=== PATIENT | male | born 1950 | race Caucasian/White ===

== ENCOUNTER → 2017-12-09 | Outpatient (CLI) | payer MEDICARE, OTHER ==
[2017-12-09 14:22] LABS: ABSOLUTE BASOPHILS 0.1 thou/uL (0.0-0.2); ABSOLUTE EOSINOPHILS 0.1 thou/uL (0.0-0.7); ABSOLUTE LYMPHOCYTES 1.6 thou/uL (0.8-5.3); ABSOLUTE MONOCYTES 0.5 thou/uL (0.0-1.2); ABSOLUTE NEUTROPHILS 4.7 thou/uL (1.6-8.1); BASOPHILS 0.8 %; EOSINOPHILS 1.6 %; HEMATOCRIT 42.4 % (42.0-52.0); HEMOGLOBIN 14.6 gm/dL (14.0-18.0); LYMPHOCYTES 22.3 %; MCH 31.4 pg (26.0-34.0); MCHC 34.3 g/dL (28.0-37.0); MCV 91.3 fL (80.0-100.0); MONOCYTES 7.1 %; NUCLEATED RBCS 0 /100WBC; PLATELET COUNT* 268 thou/uL (150-400); POLYS 68.2 %; RBC 4.64 mil/uL (4.50-6.00); RDW-CV 12.7 % (10.5-14.5)
[2017-12-09 14:35] LABS: ALBUMIN 3.9 g/dL (3.4-5.0); CALCIUM 8.8 mg/dL (8.5-10.1); CREATININE 0.9 mg/dL (0.6-1.3); POTASSIUM 3.8 mmol/L (3.5-5.1); TOTAL BILIRUBIN 0.7 mg/dL (<0.1-1.0); TOTAL PROTEIN 7.2 g/dL (6.4-8.2)
[2017-12-09 15:51] LABS: ESR (SEDRATE) 1 mm/hr (0-20)
== END ==
LOC: M.LAB 14:01
PROVIDERS: Psychiatry & Neurology Neuromuscular Medicine
DX: G45.4 Transient global amnesia (principal); F41.9 Anxiety disorder, unspecified; R53.83 Other fatigue; Z86.79 Personal history of other diseases of the circulatory system

== ENCOUNTER → 2018-01-31 | Outpatient (CLI) | payer MEDICARE, OTHER | LOC: M.MRI 13:06 | DX: I65.23 Occlusion and stenosis of bilateral carotid arteries (principal); R42 Dizziness and giddiness ==

== ENCOUNTER → 2018-10-09 | Outpatient (CLI) | payer MEDICARE, OTHER ==
[2018-10-09 11:11] LABS: CHOLESTEROL 148 mg/dL (<200); HDL CHOLESTEROL 49 mg/dL (>40); LDL CHOLESTEROL 81 mg/dL (<100); TRIGLYCERIDE 94 mg/dL (<150); VLDL 19 mg/dL (<40)
[2018-10-09 11:17] LABS: SERUM ASSESSMENT Clear
== END ==
LOC: M.LAB 10:37
PROVIDERS: Internal Medicine Cardiovascular Disease
DX: E78.2 Mixed hyperlipidemia (principal)

== ENCOUNTER → 2019-01-01 | Outpatient (CLI) | payer MEDICARE, OTHER ==
[2019-01-01 12:13] LABS: HEMATOCRIT 44.3 % (42.0-52.0); HEMOGLOBIN 15.5 gm/dL (14.0-18.0); MCH 31.4 pg (26.0-34.0); MCHC 34.9 g/dL (28.0-37.0); MCV 90.1 fL (80.0-100.0); MPV 6.9 fl. (7.2-11.1); RBC 4.92 mil/uL (4.50-6.00); RDW-CV 12.7 % (10.5-14.5); WBC 8.5 thou/uL (4.0-11.0)
[2019-01-01 12:26] LABS: ALBUMIN 3.8 g/dL (3.4-5.0); DIRECT BILIRUBIN 0.1 mg/dL (<0.1-0.3); TOTAL BILIRUBIN 0.6 mg/dL (<0.1-1.0); TOTAL PROTEIN 7.4 g/dL (6.4-8.2)
== END ==
LOC: M.LAB 11:46
PROVIDERS: Podiatrist Foot & Ankle Surgery
DX: B35.1 Tinea unguium (principal)

== ENCOUNTER → 2019-02-18 | Outpatient (CLI) | payer MEDICARE, OTHER ==
[2019-02-18 11:58] LABS: HEMATOCRIT 43.2 % (42.0-52.0); MCH 31.1 pg (26.0-34.0); MCHC 34.8 g/dL (28.0-37.0); MCV 89.4 fL (80.0-100.0); MPV 7.1 fl. (7.2-11.1); RBC 4.83 mil/uL (4.50-6.00); RDW-CV 12.7 % (10.5-14.5); WBC 6.4 thou/uL (4.0-11.0)
[2019-02-18 12:15] LABS: ALBUMIN 3.9 g/dL (3.4-5.0); DIRECT BILIRUBIN 0.1 mg/dL (<0.1-0.3); TOTAL BILIRUBIN 0.5 mg/dL (<0.1-1.0); TOTAL PROTEIN 7.1 g/dL (6.4-8.2)
== END ==
LOC: M.LAB 11:35
PROVIDERS: Podiatrist Foot & Ankle Surgery
DX: B35.1 Tinea unguium (principal)

== ENCOUNTER → 2019-03-24 | Outpatient (CLI) | payer MEDICARE, OTHER ==
[2019-03-24 16:37] LABS: DIRECT BILIRUBIN 0.1 mg/dL (<0.1-0.3); TOTAL BILIRUBIN 0.3 mg/dL (<0.1-1.0)
== END ==
LOC: M.LAB 15:53
PROVIDERS: Podiatrist Foot & Ankle Surgery
DX: B35.1 Tinea unguium (principal)

== ENCOUNTER → 2019-04-23 | Outpatient (CLI) | payer MEDICARE, OTHER ==
[2019-04-23 12:30] LABS: ALBUMIN 3.9 g/dL (3.4-5.0); DIRECT BILIRUBIN 0.1 mg/dL (<0.1-0.3); TOTAL BILIRUBIN 0.4 mg/dL (<0.1-1.0); TOTAL PROTEIN 7.1 g/dL (6.4-8.2)
== END ==
LOC: M.LAB 11:39
PROVIDERS: Podiatrist Foot & Ankle Surgery
DX: B35.1 Tinea unguium (principal)

== ENCOUNTER 2019-11-19 10:06 | Observation (INO) | payer MEDICARE, OTHER ==
[~2019-11-19] VITALS: Ht 175.3 cm; Wt 89.4 kg
[2019-11-19] VITALS (11 sets, daily range): BP systolic 116–142; BP diastolic 62–82
[2019-11-19 11:36] LABS: HEMATOCRIT 42.6 % (42.0-52.0); HEMOGLOBIN 15.3 gm/dL (14.0-18.0); MCH 32.9 pg (26.0-34.0); MCHC 35.8 g/dL (28.0-37.0); MCV 91.9 fL (80.0-100.0); MPV 7.2 fl. (7.2-11.1); RBC 4.64 mil/uL (4.50-6.00); RDW-CV 12.9 % (10.5-14.5); WBC 6.3 thou/uL (4.0-11.0)
[2019-11-19 11:46] LABS: APTT 26.8 Seconds (25.0-31.3); PROTIME 10.7 Seconds (9.20-11.50)
[2019-11-19 11:54] LABS: ANION GAP 4 mmol/L (7-16); BUN 20 mg/dL (7-18); CALCIUM 8.9 mg/dL (8.5-10.1); CHLORIDE 104 mmol/L (98-107); CO2 29 mmol/L (21-32); CREATININE 1.1 mg/dL (0.6-1.3); GLUCOSE 121 mg/dL (70-99); POTASSIUM 4.2 mmol/L (3.5-5.1); SODIUM 137 mmol/L (136-145)
[2019-11-19 11:58] LABS: ALKALINE PHOSPHATASE 43 U/L (46-116); CHOLESTEROL 155 mg/dL (<200); HDL CHOLESTEROL 63 mg/dL (>40); LDL CHOLESTEROL 74 mg/dL (<100); SGOT 17 U/L (15-37); SGPT 34 U/L (30-65); TC:HDL 2.5 Ratio (Not establshd); TOTAL BILIRUBIN 0.6 mg/dL (<0.1-1.0); TOTAL PROTEIN 7.4 g/dL (6.4-8.2); TRIGLYCERIDE 90 mg/dL (<150); VLDL 18 mg/dL (<40)
--- NOTE | 2019-11-19 11:58 | EKG ---
[place] [address] ELECTROCARDIOGRAM REPORT Name: FLEX OLVERA Room: [facility]#: [id number] Admission: 11/19/19 Attend Phys: Kameron Garvin, Discharge: Date of : 50 Date of Service: 11/19/19 1108 Report #: [id number] THIS REPORT FOR: //name// [facility] Test Date: 2019-11-19 Test Time: 11:08:20 Pat Name: FLEX OLVERA Department: Room: Gender: Lease Purchase Driver: : 1950 Requested By: Kameron Garvin Order Number: [id number] Brian MD: Nicanor Griffith Measurements Intervals [place] Rate: 71 P: 42 DE: 150 QRS: -5 QRSD: 140 T: 21 QT: 420 QTc: 457 Interpretive Statements Sinus rhythm Right bundle branch block No previous ECG available for comparison Electronically Signed On 11-19-2019 11:58:29 CDT by Nicanor Griffith [email or web address] <ELECTRONICALLY SIGNED> By: Nicanor Griffith MD, [facility] 11/19/19 1158 1108 1108 Nicanor Griffith MD, FACC /EPI
[2019-11-19 11:59] LABS: SERUM ASSESSMENT Clear
[2019-11-19] MEDS ORDERED: PLAVIX 75 MG TA75 MG PO (12:37)
[2019-11-19] MEDS ORDERED: BUSPIRONE HCL10 MG PO (12:37)
[2019-11-19] MEDS ORDERED: AVALIDE 150-121 EACH PO (12:38)
[2019-11-19] MEDS ORDERED: COQ-10100 MG PO (12:38)
[2019-11-19] MEDS ORDERED: NITRO-DUR1 EAC3 TOP (12:40)
[2019-11-19] MEDS ORDERED: CRESTOR10 MG PO (12:40)
[2019-11-19] MEDS ORDERED: VITAMIN D31250 MC1 PO (12:41)
[2019-11-19] MEDS ORDERED: NITROSTAT0.4 MG PO (12:42)
--- NOTE | 2019-11-19 15:44 | EKG ---
[place] [address] ELECTROCARDIOGRAM REPORT Name: FLEX OLVERA Room: [facility]#: [id number] Admission: 11/19/19 Attend Phys: Kameron Garvin, Discharge: Date of : 50 Date of Service: 11/19/19 1509 Report #: [id number] THIS REPORT FOR: //name// [facility] Test Date: 2019-11-19 Test Time: 15:09:38 Pat Name: FLEX OLVERA Department: Room: Gender: Regulatory Intern: : 1950 Requested By: Kameron Garvin Order Number: [id number] Brian MD: Kameron Garvin Measurements Intervals [place] Rate: 67 P: 41 IA: 160 QRS: 9 QRSD: 138 T: 28 QT: 425 QTc: 449 Interpretive Statements Sinus rhythm Right bundle branch block Compared to ECG 11/19/2019 11:08:20 No significant changes Electronically Signed On 11-19-2019 15:43:56 CDT by Kameron Garvin [email or web address] <ELECTRONICALLY SIGNED> By: Kameron Garvin MD, [facility] 11/19/19 1543 1509 1509 Kameron Garvin MD, [facility] /EPI
--- NOTE | 2019-11-19 19:51 | NUR ---
PT ADMITTED TO ROOM 232 AT APPROX 1715 VIA CART FROM PROGRAMMING SPECIALIST. RT GROIN CATH SITE C/D/I W/ NO HEMATOMA. PT IN ROOM AND UPDATED ON POC. PT GOAL IS TO KEEP CATH SITE C/D/I AND REMAIN IMMOBILE UNTIL 5 HRS POST CATH. ADMISSION ASSESSMENT AND HX COMPLETED CHARTED, SEPSIS SCREENING COMPLETED, NEGATIVE. HOURLY ROUNDING OBSERVED, CALL LIGHT W/IN REACH, PT UP AD MARVIN AT 1930.
[2019-11-20] VITALS: BP 106/53
--- NOTE | 2019-11-20 00:57 | NUR ---
INITAL ASSESMENT COMPLETED AT 1999. PT OFF BEDREST AT THAT TIME. GROIN SITE SOFT, NO BLEEDING, BRUISING OR HEMATOMA NOTED. PT INSTRUCTED TO CALL NURSE IF BLEEDING, SWELLING OCCUR AT SITE. CALL ON REACH, PT DEMONSTRATES PROPER USE.
[2019-11-20 04:00] VITALS: BP 104/63
[2019-11-20 08:08] LABS: HEMATOCRIT 41.1 % (42.0-52.0); HEMOGLOBIN 14.6 gm/dL (14.0-18.0); MCH 32.3 pg (26.0-34.0); MCHC 35.4 g/dL (28.0-37.0); MCV 91.2 fL (80.0-100.0); MPV 6.9 fl. (7.2-11.1); RBC 4.51 mil/uL (4.50-6.00); RDW-CV 12.9 % (10.5-14.5)
[2019-11-20 08:41] LABS: ALBUMIN 3.6 g/dL (3.4-5.0); CALCIUM 8.5 mg/dL (8.5-10.1); POTASSIUM 4.6 mmol/L (3.5-5.1); TOTAL BILIRUBIN 0.5 mg/dL (<0.1-1.0); TOTAL PROTEIN 6.6 g/dL (6.4-8.2)
[2019-11-20] MEDS ORDERED: ASPIR 8181 MG PO (09:02)
[2019-11-20] MEDS ORDERED: ZETIA10 MG PO (09:02)
[2019-11-20 09:25] VITALS: BP 104/63
--- NOTE | 2019-11-20 09:56 | CARD ---
[address] [address] CARDIAC CATH REPORT Name: FLEX OLVERA Room: [address] MMercy#: [id number] Admission: 11/19/19 Attend Phys: Kameron Garvin MD Discharge: Date of : 50 Report #: [id number] THIS REPORT FOR: //name// cc: Katelyn Willard Linda J. DO ~ APPROVED REPORT Study performed: 11/19/2019 12:59:10 Patient Details Patient Status: Out-Patient Room #: The patient is a 68 year-old male Event Personnel J Luis Valles RTR Monitor, Radha Mejia RN RN, Yemi Puckett RN RN, Unique Doyle RTR MorrisubBharathi Michael Pattern And Chain Maker Procedures Performed Left Heart Cath w/or w/o Coronaries [id number] [facility] [address] Place w/wo Plasty Addl BR DIAG [address] w/wo Plasty Single OM [id number] Hemostasis w/ Angioseal Indication Unstable angina (>12 hrs to = 24 hrs) Risk Factors Arterial Hypertension, Family History, Hypercholesterolemia, Coronary Artery Disease Previous Procedures/Diagnoses Previous PCI Admission/Lab Medications/Medications given during procedure Fentanyl IV 50 mcg, Lidocaine Subcut 20 ml, Midazolam (Versed) IV 2 mg, Angiomax IV 13 ml, Nitroglycerin SL 0.4 mg, Nitroglycerin IC 200 mcg, Fentanyl IV 25 mcg, Midazolam (Versed) IV 1 mg, Plavix PO 300 mg, Aspirin PO 162 mg, Angiomax IV 31.73 ml per hr Procedure Narrative The patient was brought electively to the Cardiac Catheterization Laboratory and was prepped and draped in a sterile manner. The right femoral was infiltrated with 2% Lidocaine subcutaneous anesthesia. A [place] 6 FR sheath was inserted into the right femoral artery. Coronary angiography was performed using coronary diagnostic catheters. The right coronary system [place] [address] CARDIAC CATH REPORT Name: FLEX OLVERA Room: [address]#: [id number] Admission: 11/19/19 Attend Phys: Kameron Garvin MD Discharge: Date of : 50 Report #: [id number] a Diagnostic JR4 6fr catheter. The left coronary system was accessed and visualized with a Diagnostic JL4 6fr catheter. The left ventricle was accessed and visualized with a Diagnostic Angled Pig 5fr catheter. Closure device was deployed with a 6 Fr Angioseal. The patient tolerated the procedure well and there were no complications associated with the procedure. There was no hematoma. Intraoperative Conscious Sedation Sedation start time: 1336 Case end Time: 1437 Fentanyl 100.0 mcg Versed 4.0 mg Fluoro Time: 14.0 minutes Dose: DAP 917390 cGycm2 3353.49 mGy Contrast Type and Amount: Visipaque 390 ml Coronary Angiography The patient's coronary anatomy is co- dominant. Diagnostic Cath Left Main The left main coronary artery is normal and bifurcates into a left anterior descending and circumflex coronary artery. LAD The left anterior descending coronary artery has a widely patent stent proximally. The mid vessel has 50% mid vessel narrowing noted. The distal vessel is free of significant disease. Diagonal 1 A large first diagonal branch has a 90% narrowing from its ostium to proximal portion. The mid vessel is free of significant disease. Circumflex The circumflex coronary artery is mildly plaqued proximally. The mid and distal vessel appear free of significant disease. OM1 A large and branched first obtuse marginal branch has a 90% narrowing proximally. OM2 A small second obtuse marginal branch is free of significant disease. L ROBERTA A distal circumflex lateral branch appears to be free of significant disease. Right Coronary The right coronary artery is totally occluded proximally and reconstitutes proximally via bridging collaterals. The mid and distal right coronary artery is free of significant disease. R PDA A moderate sized right PDA is free of significant disease. RPLV A small right posterior lateral branch is free of significant disease [place] [address] CARDIAC CATH REPORT Name: FLEX OLVERA Room: [address] M..#: [id number] Admission: 11/19/19 Attend Phys: Kameron Garvin MD Discharge: Date of : 50 Report #: [id number] Left Ventriculography The left ventricle is normal in size with normal contractility. The left ventricular ejection fraction is estimated to be 55-60%. Hemodynamics The aortic pressure is 139/73 mmHg with a mean of 51 mmHg. The left ventricular pressure is 134/7 mmHg with a mean of mmHg. The left ventricular end diastolic pressure is 18 mmHg. There was no gradient across the aortic valve upon pullback. PCI Technique Lesion Anticoagulation was achieved with Angiomax. Percutaneous coronary intervention was performed on the first obtuse marginal branch segment. The lesion stenosis prior to intervention was 90% with PETR 3 flow. A 6FR XB 3.5 100CM Guide Catheter was used to engage the Left ostium. A IG: BMW 190cm Interventional Guidewire was used to cross the lesion. BALLOON DILATION A Balloon catheter Euphora SC 2.0x15mm was inserted and inflated up to 8.00atm for 9seconds. Additional Inflation: 10.00atm for 13seconds. Additional Inflation: 10.00atm for 9seconds. STENT DEPLOYMENT A drug-eluting stent Douglass RX Stent 2.0X18mm was inserted and inflated up to 10.00atm for 13seconds. Additional Inflation: 10.00atm for 9seconds. A Drug-eluting stent Douglass RX Stent 2.0x 8mm was inserted and inflated up to 8.00 preet for 12 seconds. Additional Inflation: 10.00 preet for 7 seconds. Final angiography reveals 0 % stenosis with PETR 3 flow. PCI Technique Lesion 2 Percutaneous Coronary Intervention was performed on the first diagnonal branch segment. The lesion stenosis prior to intervention was 90% with PETR 3 flow. A 6FR XB 3.5 100CM Guide Catheter was used to engage the Left ostium. A IG: BMW 190cm Interventional Guidewire was used to cross the lesion. Balloon Dilation A Balloon catheter Mini Trek RX 2.0 X 12 was inserted and inflated up to 10.00atm for 15seconds. Additional Inflation: 12.00atm for 8seconds[place] [address] CARDIAC CATH REPORT Name: FLEX OLVERA [address] [id number] Admission: 11/19/19 Attend Phys: Kameron Garvin MD Discharge: Date of : 50 Report #: [id number] A drug-eluting stent Douglass RX Stent 2.0X12mm was inserted and inflated up to 10.00atm for 10seconds. Additional Inflation: 12.00atm for 8seconds. Final angiography reveals 10 % stenosis with PETR 3 flow. Conclusion 1. Unstable angina. 2. Normal left ventricular systolic function. 3. Critical narrowing of the first obtuse marginal and first diagonal branches. 4. Widely patent proximal LAD stent. 5. Chronically occluded right coronary artery fills by bridging collaterals. 6. Moderately elevated left ventricular end-diastolic pressure consistent with acute diastolic heart failure. 7 successful PCI with deployment of drug-eluting stent at site of 90% first marginal stenosis with 0% residual narrowing and PETR-3 flow to the distal vessel 8 successful PCI with deployment of drug-eluting stent at site of 90% first diagonal stenosis with 10% residual narrowing and PETR-3 flow to the distal vessel Recommendations Cardiac Risk Reduction Program Aggressive Medical Therapy 1. Percutaneous coronary intervention to the diagonal and first obtuse marginal branch. 2. Aggressive risk factor modification. Medications Administered Aspirin (any) Prasugrel Diagnostic Cath Approved by: Kameron Garvin MD Date/Time: 11/20/2019 09:55:11 <ELECTRONICALLY SIGNED> By: Nicanor Griffith MD, [facility] 11/20/19 0956 0956Nicanor Griffith MD, [facility] /INF
--- NOTE | 2019-11-20 10:10 | NUR ---
ASSUMED PT CARE AT 0730, PT AOX4 AND HAS NO C/O PAIN OR SHORTNESS OF BREATH. RT GROIN CATH SITE C/D/I W/ GAUZE AND TRANSPARENT DRESSING IN PLACE. PT GOAL IS TO DC TODAY. AM ASSESSMENT CHARTED, MEDS PER MAR, HOURLY ROUNDING OBSERVED, CALL LIGHT W/IN REACH, PT UP AD MARVIN AT THIS POINT.
--- NOTE | 2019-11-20 10:40 | EKG ---
[place] [address] ELECTROCARDIOGRAM REPORT Name: FLEX OLVERA Room: [address]#: [id number] Admission: 11/19/19 Attend Phys: Kameron Garvin, Discharge: Date of : 50 Date of Service: 11/20/19 0834 Report #: [id number] THIS REPORT FOR: //name// [facility] Test Date: 2019-11-20 Test Time: 08:34:13 Pat Name: FLEX OLVERA Department: Room: [facility] Gender: M Customer Sales Specialist: : 1950 Requested By: Kameron Garvin Order Number: [id number] Brian MD: Nicanor Griffith Measurements Intervals [place] Rate: 71 P: 55 ME: 153 QRS: -23 QRSD: 136 T: 5 QT: 419 QTc: 456 Interpretive Statements Sinus rhythm Right bundle branch block Compared to ECG 11/19/2019 15:09:38 No significant changes Electronically Signed On 11-20-2019 10:40:12 CDT by Nicanor Griffith [email or web address] <ELECTRONICALLY SIGNED> By: Nicanor Griffith MD, [facility] 11/20/19 1040 0834 0834 Nicanor Griffith MD, [facility] /EPI
--- NOTE | 2019-11-20 11:23 | NUR ---
DC ORDERS RECEIVED. DC INSTRUCTIONS, CARE NOTES, SCRIPTS AND F/U APPTS GIVEN TO PT. PT COMMUNICATES UNDERSTANDING OF DC TEACHING. IV AND DIRECTOR OPERATIONS BROADCAST REMOVED. PT DC'D BY WC W/ NURSING STAFF AT APPROX 1120 W/ ALL PAPERWORK AND BELONGINGS TO 'S PERSONAL VEHICLE.
--- NOTE | 2019-11-20 14:27 | D ---
[address] [address] DISCHARGE SUMMARY Name: FLEX OLVERA Room: [address] Karen Chapman#: [id number] Admission: 11/19/19 Attend Phys: Kameron Garvin MD Discharge: 11/20/19 Date of : 50 Report #: [id number] THIS REPORT FOR: //name// cc: Katelyn Willard Linda J. DO THIS REPORT FOR: //name// CC: Katelyn Mazariegos DISCHARGE DIAGNOSES: 1. Unstable angina. 2. Coronary artery disease. 3. Dyslipidemia. 4. Hypertension. PROCEDURES DURING THE HOSPITALIZATION: 1. Left heart catheterization. 2. Left ventriculography. 3. Coronary angiography. 4. Percutaneous coronary intervention with drug-eluting stent placement to the first obtuse marginal branch of the circumflex and the first diagonal branch of the left anterior descending coronary artery. HOSPITAL COURSE: The patient was brought to the cardiac catheterization lab with complaints of increasing episodes of chest discomfort consistent with unstable angina. On angiography, he was found to have a critically stenosed first obtuse marginal branch of approximately 99%. He underwent percutaneous coronary intervention with drug-eluting stent placement to this artery with excellent result. The patient also was noted to have a 90% stenosis of the first diagonal branch of the left anterior descending coronary artery, for which he had a drug-eluting stent placed as well. The patient tolerated the procedure well and there were no complications. The patient was observed overnight in the hospital and discharged uneventfully. DISCHARGE MEDICATIONS: Will include Crestor 10 mg daily, Zetia 10 mg daily, aspirin 81 mg daily, Plavix 75 mg daily, BuSpar 10 mg daily, CoQ10 of 100 mg daily, irbesartan/hydrochlorothiazide 150/12.5 mg 1 tablet daily, Nitrostat p.r.n., vitamin D3 of 1250 mcg daily. DISPOSITION: The patient is to follow up with nurse practitioner in 2 weeks and myself in 5 months. <ELECTRONICALLY SIGNED> By: Kameron Garvin MD, FACC 11/20/19 1427 0908 0927Mickelly Garvin MD, FACC /nt
== END 2019-11-20 11:15 | disposition home or self-care (01) ==
LOC: M.CL 10:06 → M.TBA-ER 15:06 → M.2W 17:15
PROVIDERS: ADMIT Internal Medicine Cardiovascular Disease; ATTEND Internal Medicine Cardiovascular Disease
DX: I25.110 Atherosclerotic heart disease of native coronary artery with unstable angina pectoris (principal); E78.5 Hyperlipidemia, unspecified; I10 Essential (primary) hypertension; Z79.82 Long term (current) use of aspirin; Z79.01 Long term (current) use of anticoagulants; Z79.899 Other long term (current) drug therapy

== ENCOUNTER → 2020-03-17 | Outpatient (CLI) | payer MEDICARE, OTHER ==
[~2020-03-17] MED LIST: ASPIR 8181 MG PO; AVALIDE 150-121 EACH PO; BUSPIRONE HCL10 MG PO; COQ-10100 MG PO; CRESTOR10 MG PO; NITRO-DUR1 EAC3 TOP; NITROSTAT0.4 MG PO; PLAVIX 75 MG TA75 MG PO; VITAMIN D31250 MC1 PO; ZETIA10 MG PO
[2020-03-17 13:39] LABS: ALBUMIN 3.9 g/dL (3.4-5.0); ALKALINE PHOSPHATASE 47 U/L (46-116); CHOLESTEROL 117 mg/dL (<200); DIRECT BILIRUBIN 0.2 mg/dL (<0.1-0.3); HDL CHOLESTEROL 59 mg/dL (>40); LDL CHOLESTEROL 39 mg/dL (<100); SERUM ASSESSMENT Clear; SGOT 20 U/L (15-37); SGPT 48 U/L (30-65); TOTAL BILIRUBIN 0.6 mg/dL (<0.1-1.0); TOTAL PROTEIN 7.2 g/dL (6.4-8.2); TRIGLYCERIDE 95 mg/dL (<150); VLDL 19 mg/dL (<40)
== END ==
LOC: M.LAB 13:11
PROVIDERS: ATTEND Internal Medicine Cardiovascular Disease
DX: E78.2 Mixed hyperlipidemia (principal)

== ENCOUNTER → 2020-05-20 | Outpatient (CLI) | payer MEDICARE, OTHER | LOC: M.CT 10:47 | PROVIDERS: ATTEND Family Medicine | DX: N28.1 Cyst of kidney, acquired (principal); R19.5 Other fecal abnormalities; M25.78 Osteophyte, vertebrae; K44.9 Diaphragmatic hernia without obstruction or gangrene ==

== ENCOUNTER → 2020-10-07 | Outpatient (CLI) | payer MEDICARE, OTHER ==
[2020-10-07 11:18] LABS: ALBUMIN 4.2 g/dL (3.4-5.0); ALKALINE PHOSPHATASE 47 U/L (46-116); CHOLESTEROL 112 mg/dL (<200); DIRECT BILIRUBIN 0.2 mg/dL (<0.1-0.3); HDL CHOLESTEROL 54 mg/dL (>40); LDL CHOLESTEROL 44 mg/dL (<100); SGOT 22 U/L (15-37); SGPT 48 U/L (30-65); TC:HDL 2.1 Ratio (Not establshd); TOTAL BILIRUBIN 0.5 mg/dL (<0.1-1.0); TOTAL PROTEIN 7.4 g/dL (6.4-8.2); TRIGLYCERIDE 73 mg/dL (<150); VLDL 15 mg/dL (<40)
[2020-10-07 11:22] LABS: SERUM ASSESSMENT c
== END ==
LOC: M.LAB 10:36
PROVIDERS: ATTEND Internal Medicine Cardiovascular Disease
DX: E78.2 Mixed hyperlipidemia (principal); I25.119 Atherosclerotic heart disease of native coronary artery with unspecified angina pectoris

== ENCOUNTER → 2020-12-20 | Outpatient (CLI) | payer MEDICARE, OTHER | LOC: M.ULTRA 11:30 | PROVIDERS: ATTEND Nurse Practitioner | DX: I65.22 Occlusion and stenosis of left carotid artery (principal) ==

== ENCOUNTER → 2021-01-11 | Outpatient (CLI) | payer MEDICARE, OTHER ==
--- NOTE | ~2021-01-11 | EEG ---
[place] [address] EEG STUDY REPORT Name: FLEX OLVERA Room: [facility]#: [id number] Admission: 01/11/21 Attend Phys: Octavio Swain MD Discharge: Date of : 50 Report #: [id number] THIS REPORT FOR: cc: Katelyn Willard Linda J. DO Khosla,Octavio Syed MD ~ DATE OF SERVICE: 01/11/2021 This patient's EEG was done by placing the electrode by standard 10-20 system of electrode placement. Both referential and sequential montages were used for recording. Background activity in this patient's EEG is about 8-9 Hz and 30 microvolt. The patient goes to sleep, that is associated with bilateral slowing and vertex sharp waves. Photic stimulation is unremarkable. Throughout the record, no active epileptiform activity was noticed. IMPRESSION: This patient's EEG is somewhat slow, which is a nonspecific finding, which can occur with drowsiness, effect of psychotropic medication, dementia, etc. It is a nonspecific finding and therefore clinical correlation is recommended. Thank you very much for this referral. By: 1513 1704Parrichmond Swain MD /nt
[2021-01-11 12:22] LABS: ALBUMIN 3.6 g/dL (3.4-5.0); CALCIUM 8.6 mg/dL (8.5-10.1); POTASSIUM 3.9 mmol/L (3.5-5.1); TOTAL BILIRUBIN 0.4 mg/dL (<0.1-1.0)
== END ==
LOC: M.CRD 01-02 16:28 → M.LAB 11:38 → M.CRD 13:00
PROVIDERS: ATTEND Psychiatry & Neurology Neuromuscular Medicine
DX: I67.82 Cerebral ischemia (principal); R42 Dizziness and giddiness; R53.83 Other fatigue; G45.4 Transient global amnesia; F43.9 Reaction to severe stress, unspecified